=== PATIENT | male | born 1955 | race Caucasian/White ===

== ENCOUNTER → 2021-04-02 | Outpatient (CLI) | payer OTHER ==
[~2021-04-02] MED LIST: ASPI81CH; LISI20; Omeprazole20 M1; Simvastatin20 MG
== END ==
LOC: LAB SHORT 12:09 → LAB 12:09
DX: L30.8 Other specified dermatitis (principal)
CPT/HCPCS: 88305; 88312

== ENCOUNTER 2023-09-06 08:05 | Day surgery (SDC) | payer OTHER ==
[~2023-09-06] VITALS: Ht 172.7 cm; Wt 74.6 kg
[2023-09-06] MEDS ORDERED: QVAR REDIHALE10.6 G2 (08:24)
[2023-09-06] MEDS ORDERED: MULVITA PO (08:24)
[2023-09-06] MEDS ORDERED: Ventolin5 MG/1 ML (08:24)
[2023-09-06 10:10] VITALS: BP 123/88
== END 2023-09-06 10:09 | disposition home or self-care (01) ==
LOC: ORSCSDS 08:05
PROVIDERS: Surgery
PROC: 0DBH8ZX Excision of Cecum, Via Natural or Artificial Opening Endoscopic, Diagnostic (ICD-10-PCS; principal; 2023-09-06 09:15)
PROC: 0DBM8ZX Excision of Descending Colon, Via Natural or Artificial Opening Endoscopic, Diagnostic (ICD-10-PCS; principal; 2023-09-06 09:15)
DX: Z12.11 Encounter for screening for malignant neoplasm of colon (principal); Z86.010 Personal history of colon polyps; D12.0 Benign neoplasm of cecum; D12.4 Benign neoplasm of descending colon; K57.30 Diverticulosis of large intestine without perforation or abscess without bleeding; J45.909 Unspecified asthma, uncomplicated; K21.9 Gastro-esophageal reflux disease without esophagitis; I10 Essential (primary) hypertension; E78.5 Hyperlipidemia, unspecified; Z79.899 Other long term (current) drug therapy
CPT/HCPCS: 88305; J2704; J7120

== ENCOUNTER → 2024-07-31 | Outpatient (CLI) | payer OTHER ==
[~2024-07-31] MED LIST changes: +MULVITA PO; +QVAR REDIHALE10.6 G2; +Ventolin5 MG/1 ML
[2024-07-31 11:09] LABS: BASOPHILS ABSOLUTE AUTO 0.03 K/mm3 (0.00-0.23); BASOPHILS PERCENT AUTO 0 % (0-2); EOSINOPHILS PERCENT AUTO 0 % (0-6); Hematocrit 45.8 % (37.0-53.0); Hemoglobin 15.8 g/dL (13.5-17.5); IMMATURE GRAN ABSOLUTE AUTO 0.08 K/mm3 (0.00-0.10); IMMATURE GRAN PERCENT AUTO 1 % (0-1); LYMPHOCYTES ABSOLUTE AUTO 1.59 K/mm3 (0.84-5.20); LYMPHOCYTES PERCENT AUTO 9 % (21-46); MONOCYTES ABSOLUTE AUTO 1.15 K/mm3 (0.16-1.47); MONOCYTES PERCENT AUTO 7 % (4-13); Mean Corpuscular HGB 31.2 pg (26.0-34.0); Mean Corpuscular HGB Conc 34.5 g/dL (31.5-36.5); Mean Corpuscular Volume 90 fL (80-100); Mean Platelet Volume 11.2 fL (9.1-12.4); NEUTROPHILS ABSOLUTE AUTO 14.27 K/mm3 (1.96-9.15); NEUTROPHILS PERCENT AUTO 83 % (41-73); Platelet Count 231 K/mm3 (150-400); RDW Coefficient Variation 12.7 % (11.7-14.2); RDW Standard Deviation 41.5 fL (35.1-46.3); Red Blood Cell Count 5.07 M/mm3 (4.30-5.90); White Blood Cell Count 17.12 K/mm3 (4.00-11.30)
[2024-07-31 11:42] LABS: Bilirubin, Direct 0.6 mg/dL (0.0-0.3); Bilirubin, Indirect 0.8 mg/dL (0.1-0.7); Bilirubin, Total 1.4 mg/dL (0.1-1.0)
[2024-08-01 15:17] LABS: HEPATITIS A ANTIBODY, IGM Negative (Negative); HEPATITIS B CORE ANTIBODY, IGM Negative (Negative); HEPATITIS B SURFACE ANTIGEN Negative (Negative); HEPATITIS C AB CIA INTERP Negative (Negative); HEPATITIS C ANTIBODY CIA INDEX 0.08 IV
== END | disposition home or self-care (01) ==
LOC: LAB 10:52 → LAB SHORT 10:52
PROVIDERS: Family Medicine
DX: R74.8 Abnormal levels of other serum enzymes (principal); R10.9 Unspecified abdominal pain; D72.829 Elevated white blood cell count, unspecified
CPT/HCPCS: 80074; 82247; 82248; 85025; 87040; 87086

== ENCOUNTER 2024-10-22 08:56 | Day surgery (SDC) | payer OTHER ==
[2024-10-22] VITALS (8 sets, daily range): BP systolic 119–172; BP diastolic 84–92
[~2024-10-22] VITALS: Ht 170.2 cm; Wt 71.2 kg
[~2024-10-22 08:56] MED LIST changes: +CeFAZolin Sodium 2,000 MG in NS 100 ML IV SCH; -LISI20; +LISI20 PO; +Lactated Ringer's 1,000 ML IV SCH; +OMEP20ER PO; -Omeprazole20 M1; +REVATIO20 MG PO; -Simvastatin20 MG; +Simvastatin20 MG PO
[2024-10-22] MEDS ORDERED: CeFAZolin Sodium 2,000 MG VIAL ONE (10:16)
[2024-10-22] MEDS ORDERED: Bupivacaine 0.5% HCl 5 MG/ML 30MLVIAL ONE (10:23)
[2024-10-22] MEDS ORDERED: Ketorolac Tromethamine 30mg Vial ONE (10:28)
[2024-10-22] MEDS ORDERED: Rocuronium Bromide 10 MG/ML 5ML Injection IV ONE ×2 (10:28→11:04)
[2024-10-22] MEDS ORDERED: FentaNYL Citrate 50 MCG/ML 2 ML Injection ONE (10:28)
[2024-10-22] MEDS ORDERED: propofoL 20 ML IV ONE (10:28)
[2024-10-22] MEDS ORDERED: Dexamethasone Sod Phos 10 MG/ML 1ML VIAL ONE (10:28)
[2024-10-22] MEDS ORDERED: Ondansetron HCl 2 MG / ML 2ML Vial ONE (10:28)
--- NOTE | 2024-10-22 11:01 | NUR ---
1010- POST-SURGICAL CLIP PREP ABRASION NOTED TO LLQ ABD. PATIENT NOTIFIED OF ABRASION. REPORT GIVEN TO MACHINE SANDERMARLEN PARK RN. IRIS SUBMITTED.
[2024-10-22] MEDS ORDERED: Sugammadex Sodium 200 MG/2ML SDV (100 MG/ML) ONE (11:20)
[2024-10-22] MEDS ORDERED: HYDROmorphone HCl/Pf 1MG SYR IV PRN (12:15)
[2024-10-22] MEDS ORDERED: Albuterol 2.5 MG/3 ML VIAL INH PRN (12:15)
[2024-10-22] MEDS ORDERED: Droperidol 5 mg/2 ml Vial IV PRN (12:15)
[2024-10-22] MEDS ORDERED: FentaNYL Citrate 50 MCG/ML 2 ML Injection IV PRN (12:20)
[2024-10-22] MEDS ORDERED: HYDROcodone 5-APAP 325 TAB PO PRN (12:20)
[2024-10-22] MEDS ORDERED: Droperidol 5 mg/2 ml Vial ONE (12:38)
--- NOTE | 2024-10-22 13:35 | NUR ---
Discharge instructions reviewed with patient. Patient verbalizes understanding. Copy given to patient to take home.Ambulatory in Day Surgery. Discharge instructions reviewed with patient. Patient verbalizes understanding. Copy given to patient to take home. Dressing to procedure site clean, dry, intact with no visible drainage, swelling, erythema or bruising noted. Discharged via wheelchair to private car for ride home. ALL BELONGINGS RETURNED TO PATIENT.
== END 2024-10-22 23:00 | disposition home or self-care (01) ==
LOC: ORSCMMR 08:56 → ORD 09:00 → ORSCMMR 10:00 → ORD 10:00 → ORSCMMR 23:00
PROVIDERS: Surgery
PROC: BF031ZZ Plain Radiography of Gallbladder and Bile Ducts using Low Osmolar Contrast (ICD-10-PCS; principal; 2024-10-22 10:00)
PROC: 0FT44ZZ Resection of Gallbladder, Percutaneous Endoscopic Approach (ICD-10-PCS; principal; 2024-10-22 10:00)
DX: K80.10 Calculus of gallbladder with chronic cholecystitis without obstruction (principal); K85.10 Biliary acute pancreatitis without necrosis or infection; I10 Essential (primary) hypertension; K21.9 Gastro-esophageal reflux disease without esophagitis; Z79.899 Other long term (current) drug therapy
CPT/HCPCS: 74300; 88304; A9270; C1729; J0690; J1100; J1790; J1885; J2405; J2704; J3010; J7120